=== PATIENT | male | born 2000 | race Two or more races ===

== ENCOUNTER 2020-06-18 11:27 | Emergency (ER) | payer BC, MEDICAID ==
[~2020-06-18] VITALS: Ht 180.3 cm; Wt 63.5 kg
[2020-06-18 16:34] VITALS: BP 120/85
== END 2020-06-18 16:35 | disposition home or self-care (01) ==
LOC: ER 11:27
DX: S16.1XXA Strain of muscle, fascia and tendon at neck level, initial encounter (principal); R51.9 Headache, unspecified; R11.2 Nausea with vomiting, unspecified; F17.210 Nicotine dependence, cigarettes, uncomplicated; V86.59XA Driver of other special all-terrain or other off-road motor vehicle injured in nontraffic accident, initial encounter; Y93.I9 Activity, other involving external motion; Y92.89 Other specified places as the place of occurrence of the external cause; Y99.8 Other external cause status
CPT/HCPCS: 70450; 72125

== ENCOUNTER 2024-07-15 14:44 | Emergency (ER) | payer MEDICAID ==
[~2024-07-15] VITALS: Ht 180.3 cm; Wt 77.2 kg
--- NOTE | 2024-07-15 15:10 | ED.PDOC ---
HPI (NEURO) HPI Comments 24-year-old male brought in by EMS presents with a chief compliant of headache x 3 weeks intermittently. Patient states that for the past x 3 weeks he has been having migraine type headaches that are sharp in nature, and causing him to feel photophobic. Patient reports that he visited his PMD x 1 week ago and was given extra strength Tylenol, but reports no relief of symptoms. Patient denies vision changes or other neurological symptoms. No other symptoms or modifying factors present at this time. Chief Complaint: Headache Time Seen by MD: 15:03 Primary Care Provider: UNKNOWN Reviewed Notes: Medications, Allergies Information Source: Patient Mode of Arrival: EMS Severity: Moderate Headache Severity: Moderate, Worst Headache of life Timing: Weeks Duration: Intermittent Prehospital treatment: None Headache Quality: Sharp Headache Location: Frontal Onset: At rest Circumstances: Spontaneous Associated Signs and Symptoms: Headache Past Medical History PAST MEDICAL HISTORY: Denies Surgical History: Denies all surgeries Family History Family History: Reviewed,noncontributory to illness Social History Smoker: Cigarettes Alcohol: Occasionally Drugs: Marijuana Lives In: Home Constitutional: denies: chills, diaphoresis, fatigue, fever, malaise, sweats, weakness, others EENTM: denies: blurred vision, double vision, ear bleeding, ear discharge, ear drainage, ear pain, ear ringing, eye pain, eye redness, hearing loss, mouth pain, mouth swelling, nasal discharge, nose bleeding, nose congestion, nose pain, photophobia, tearing, throat pain, throat swelling, voice changes, others Respiratory: denies: cough, hemoptysis, orthopnea, SOB at rest, shortness of breath, SOB with excertion, stridor, wheezing, others Cardiovascular: denies: chest pain, dizzy spells, diaphoresis, Dyspnea on exertion, edema, irregular heart beat, left arm pain, lightheadedness, pal pitations, PND, syncope, others Gastrointestinal: denies: abdomen distended, abdominal pain, blood streaked bowels, constipated, diarrhea, dysphagia, difficulty swallowing, hematemesis, melena, nausea, poor appetite, poor fluid intake, rectal bleeding, rectal pain, vomiting, others Genitourinary: denies: burning, dysuria, flank pain, frequency, hematuria, incontinence, penile discharge, penile sore, pain, testicle pain, testicle swelling, urgency, others Neurological: reports: headache; denies: dizziness, fainting, left sided numbness, left sided weakness, numbness, paresthesia, pre-existing deficit, right sided numbness, right sided weakness, seizure, speech problems, tingling, tremors, weakness, others Musculoskeletal: denies: back pain, gout, joint pain, joint swelling, muscle pain, muscle stiffness, neck pain, others Integumetry: denies: bruises, change in color, change in hair/nails, dryness, laceration, lesions, lumps, rash, wounds, others Allergic/Immunocompromised: denies: Difficulty Healing, Frequent Infections, Hives, Itching, others Hematologic/Lymphatic: denies: anemia, blood clots, easy bleeding, easy bruising, swollen glands, others Endocrine: denies: excessive hunger, excessive sweating, excessive thirst, excessive urination, flushing, intolerance to cold, intolerance to heat, unexplained weight gain, unexplained weight loss, others Psychiatric: denies: anxiety, bipolar disorder, depression, hopeless, panic disorder, schizophrenia, sleepless, suicidal, others All Other Systems: Reviewed and Negative Physical Exam General Appearance: No Apparent Distress, Normal HEENT: Normal ENT Inspection, Pharynx Normal, TMs Normal Neck: Full Range of Motion, Non-Tender, Normal, Normal Inspection Respiratory: Chest Non-Tender, Lungs Clear, No Accessory Muscle Use, No Respiratory Distress, Normal Breath Sounds Cardiovascular: No Edema, No JVD, No Murmur, No Gallop, Normal Peripheral Pulses, Regular Rate/Rhythm Breast Exam: Deferred Gastrointestinal: No Organomegaly, Non Tender, No Pulsatile Mass, Normal Bowel Sounds, Soft Genitalia: Deferred Pelvic: Deferred Rectal: Deferred Extremities: No calf tenderness, Normal capillary refill, Normal inspection, Normal range of motion, Non-tender, No pedal edema Musculoskeletal : Apperance: Normal Neurologic: Alert, insurance loss adjuster II-XII nml as Tested, No Motor Deficits, Normal Affect, Normal Mood, No Sensory Deficits Cerebellar Function: Normal Reflexes: Normal Skin: Dry, Normal Color, Warm Lymphatic: No Adenopathy Was a procedure done? Was a procedure done?: No X-Ray, Labs, Meds, VS Vital Signs Date Time Temp Pulse Resp B/P (MAP) Pulse Ox O2 Delivery O2 Flow Rate FiO2 07/15/24 16:56 98.1 57 20 119/86 (97) 97 98.1 07/15/24 15:56 98.7 57 17 134/97 (109) 99 98.7 07/15/24 15:56 57 16 99 Room Air 07/15/24 14:50 98.1 64 20 123/78 (93) 97 Current Medications Medications (Trade) Dose Ordered Sig/[place] Route Start Time Stop Time Status Last Admin Acetaminophen/ Hydrocodone Bitart ([place] 10/325MG Tab) 1 tab ONCE ONCE PO 07/15/24 15:15 07/15/24 15:16 DC 07/15/24 15:50 Ondansetron HCl (Zofran Po) 4 mg ONCE ONCE PO 07/15/24 15:15 07/15/24 15:16 DC 07/15/24 15:51 Dexamethasone (Decadron Tablet) 8 mg ONCE ONCE PO 07/15/24 15:15 07/15/24 15:16 DC 07/15/24 15:50 Time of 1ST Reevaluation: 15:33 Reevaluation 1ST: Unchanged Time of 2ND Reevaluation: 16:00 Reevaluation 2ND: Improved Patient Education/Counseling: Diagnosis, Treatment, Prognosis Family Education/Counseling: Diagnosis, Treatment, Prognosis Departure 1 Departure Time of Disposition: 16:00 Impression: Primary Impression: Headache Additional Impression: Migraine variant Disposition: 01 HOME / SELF CARE / HOMELESS Condition: Stable e-Prescriptions Gabapentin (Once-Daily) (Gabapentin) 300 Mg Tab 300 MG PO Q6HP PRN for 7 Days, #28 TAB Prov: RADHA AIKEN MD 07/15/24 Discharged With: Self Critical Care Note Critical Care Time?: No Stability Stability form required: No I personally scribed for RADHA AIKEN MD ([email or web address]) on 07/15/24 at 15:10. Electronically submitted by Gerald Ojeda ([email or web address]). RADHA AIKEN MD Jul 15, 2024 15:10
--- NOTE | 2024-07-15 15:25 | DVH ---
EXAM: CT HEAD WITHOUT CONTRAST HISTORY: worst headache of life COMPARISON: CERVICAL WITHOUT CONTRAST on DOS: 06/18/20, HEAD WITHOUT CONTRAST on DOS: 06/18/20 TECHNIQUE: Axial images were obtained and reformatted in coronal and sagittal planes. All CT scans at this medical facility are performed using dose modulation techniques as appropriate t o a performed exam including the following: Automated exposure control was utilized; adjustment of th e MA and/or KV according to patient size; and use of iterative reconstruction technique. CT Dose: CTDI volume is 58 mGy. Dose-length product is 1158 mGy*cm FINDINGS: Supratentorial Region: No evidence for large acute territorial ischemia. No intracranial hemorrhage is noted. Posterior Fossa: No acute abnormality. Brainstem: Unremarkable. Sellar/Suprasellar Region: Unremarkable. Ventricles, Cisterns, Sulci: Age-appropriate. Orbits: Unremarkable. Paranasal Sinuses: Unremarkable. Mastoid Air Cells: Unremarkable. Vasculature: Unremarkable. Bones/Soft Tissues: No acute abnormality. Other: None. IMPRESSION: 1. No acute intracranial process.
[2024-07-15] MEDS: HYDROcodone-ACET 10/325MG TAB PO ONE (15:50)
[2024-07-15] MEDS: DexAMETHasone 4 MG TAB PO ONE (15:50)
[2024-07-15] MEDS: ONDANSETRON ODT 4 MG TAB PO ONE (15:51)
[2024-07-15] MEDS ORDERED: GABA300T4 PO (16:34)
[2024-07-15 16:56] VITALS: BP 119/86; PULSE 57; RESP 20; TEMP 98.1; O2SAT 97
== END 2024-07-15 16:59 | disposition home or self-care (01) ==
LOC: EDBD 14:44 → EDUNIT# 14:44 → ER 14:44
DX: G43.909 Migraine, unspecified, not intractable, without status migrainosus (principal); F17.210 Nicotine dependence, cigarettes, uncomplicated; F12.90 Cannabis use, unspecified, uncomplicated
CPT/HCPCS: 70450; 99284; J8540; Q0162